=== PATIENT | male | born 2005 | race Caucasian/White ===

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

== ENCOUNTER 2025-02-02 20:53 | Emergency (ER) | payer OTHER ==
[~2025-02-02] VITALS: Ht 177.8 cm; Wt 80.0 kg
[2025-02-03 00:15] VITALS: BP 119/76; TEMP 97.6; O2SAT 98
== END 2025-02-03 00:17 | disposition home or self-care (01) ==
LOC: M ED 20:53
DX: L25.9 Unspecified contact dermatitis, unspecified cause (principal); F17.290 Nicotine dependence, other tobacco product, uncomplicated